=== PATIENT | male | born 1945 | race Caucasian/White ===

== ENCOUNTER 2020-05-03 09:27 | Emergency (ER) | payer MEDICARE, SELFPAY ==
--- NOTE | ~2020-05-03 | XR_ITS ---
EXAMINATION: XR ribs LT 2V w CXR 2V DATE: 05/03/2020 10:43 INDICATION: Left posterior rib pain. TECHNIQUE: Frontal and lateral views of the chest and 3 views of the left ribs were obtained. COMPARISON: None. FINDINGS: CHEST TWO VIEWS: A calcified right lung nodule and calcified right hilar and mediastinal lymph nodes are consistent with old granulomatous disease. No pleural effusion or pneumothorax. The heart size is normal. LEFT RIBS: There is no rib fracture. IMPRESSION: 1. No rib fracture. Reviewed, dictated and finalized at location B. RANS' COUNSELOR IMPRESSION: 1. No rib fracture.
--- NOTE | ~2020-05-03 | XR_ITS ---
EXAMINATION: XR shoulder LT min 2V DATE: 05/03/2020 10:43 INDICATION: Left shoulder pain. TECHNIQUE: 4 views of left shoulder were obtained. COMPARISON: None. FINDINGS: Bone alignment is normal. No fracture. There is mild osteoarthritis of glenohumeral joint a nd severe osteoarthritis of the acromioclavicular joint. IMPRESSION: 1. Polyarticular osteoarthritis. Reviewed, dictated and finalized at location B. IGN LANGUAGE TEACHER
--- NOTE | ~2020-05-03 | CT_ITS ---
EXAMINATION: CT brain wo con EXAM DATE: 05/03/2020 10:27 INDICATION: Head injury, dizziness. TECHNIQUE: Spiral CT of the head was performed without contrast. Axial, coronal and sagittal images were reviewed. The dose-length product (DLP) for this examination was 605.33 mGy-cm. The exposure w as tailored according to patient size, and iterative reconstruction (ASIR) was used as additional dos e reduction technique. There is no prior study for comparison. FINDINGS: There is no acute intraparenchymal hemorrhage. No evidence of intraparenchymal brain mass lesion. No evidence of acute infarction. Please note that initial head CT has limited sensitivity f or small or acute infarctions. Moderate-sized region of right temporal encephalomalacia, probably fr om prior infarction. There is mild periventricular and subcortical hypodensity, nonspecific but prob ably related to small vessel ischemic disease. There is mild prominence of the sulci and ventricles related to cerebral atrophy. There is intracranial carotid arteriosclerosis. There are no extra-a xial collections. There is no mass effect or midline shift. The orbits are unremarkable. Soft tiss ue is unremarkable. The visualized sinuses and mastoid air cells are well aerated. IMPRESSION: 1. 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 2. Chronic age related findings. Reviewed, dictated and finalized at location A. TABLE ENGINEER
--- NOTE | ~2020-05-03 | CT_ITS ---
EXAMINATION: CT UE LT wo con DATE: 05/03/2020 11:56 INDICATION: Left shoulder and upper arm pain post fall TECHNIQUE: High resolution computed tomography (CT) of the left upper limb from the shoulder through the distal humerus with portions of the posterolateral elbow excluded from the [id number]. was per formed without intravenous contrast. Additional sagittal and coronal reconstructions were performed. Automated exposure control and iterative reconstruction technique were employed. The dose-length prod uct was 803.59 mGy-cm. COMPARISON: Radiographs dated 05/03/2020 FINDINGS: Bone alignment is normal. No fracture. Mild left glenohumeral and severe acromioclavicular osteoarthr itis. No glenohumeral joint effusion or other abnormal fluid collections. No asymmetric muscular atro phy of the muscles of the left shoulder girdle including the rotator cuff or of the left upper arm. N o pathologically enlarged left axillary lymphadenopathy. Mild emphysema. IMPRESSION: 1. 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 No acute osseous abnormality. Reviewed, dictated and finalized at location A. ERS AND PRESSURE VESSELS INSPECTOR IMPRESSION: 1. Polyarticular osteoarthritis at the left shoulder, severe at the acromioclav icular joint. No acute osseous abnormality.
--- NOTE | ~2020-05-03 | XR_ITS ---
EXAMINATION: XR humerus LT DATE: 05/03/2020 10:43 INDICATION: Left shoulder pain. TECHNIQUE: 2 views of left humerus were obtained. COMPARISON: None. FINDINGS: Bone alignment is normal. No fracture. There is mild osteoarthritis of glenohumeral joint a nd severe osteoarthritis of the acromioclavicular joint. There are enthesophytes at the medial and la teral humeral epicondyles. There is a small fragment of heterotopic ossification near proximal radius . IMPRESSION: 1. Polyarticular osteoarthritis. Reviewed, dictated and finalized at location B. MANAGER
[2020-05-03 09:35] VITALS: BP 176/90; PULSE 68; RESP 14; TEMP 36.4; O2SAT 99
--- NOTE | 2020-05-03 09:48 | ECG_ITS ---
Measurements Intervals [place] Rate: 53 P: -22 TN: 208 QRS: 7 QRSD: 73 T: 27 QT: 391 QTc: 368 Interpretive Statements SINUS BRADYCARDIA ANTEROSEPTAL INFARCT, AGE INDETERMINATE BASELINE ARTIFACT- I, II, III, AVR, AVF ABNORMAL ECG Electronically Signed On 05-03-2020 10:11:20 WET INSPECTOR [employer] by Raad Turner D.O.
--- NOTE | 2020-05-03 09:51 | ED.UPPEXIN ---
HPI - Extremity Injury (Upper) General Chief Complaint: Extremity Injury, Upper Stated Complaint: left arm not working correctly x1 wk Time Seen by Provider: 05/03/20 09:30 Source: patient Mode of arrival: ambulatory Limitations: no limitations History of Present Illness HPI narrative: This is a 74-year-old male that presents the emergency department for left shoulder pain after an injury 1 week ago. Reports he was raking leaves and hit his head on a wooden beam. Reports this caused him to fall backwards and landed on his left arm. He is not sure if he lost consciousness. He was not evaluated after this accident. Reports since he has had dizzy spells intermittently upon standing. Also reports left upper arm pain. Reports decreased range of motion in the shoulder due to pain. Denies fever, vision changes, vomiting, or numbness. Related Data Allergies Allergy/AdvReac Type Severity Reaction Status Date / Time No Known Drug Allergies Allergy Unknown Unverified 04/12/09 10:45 Review of Systems Review of Systems: Narrative: CONSTITUTIONAL: Denies fever EYES: Denies visual changes CARDIOVASCULAR: Denies chest pain RESPIRATORY: Denies dyspnea. GASTROINTESTINAL: Denies vomiting MUSCULOSKELETAL: Reports joint pain and myalgia. Denies back pain NEUROLOGIC: Reports weakness. Denies headache, numbness All systems reviewed & are unremarkable except as noted in HPI and below PMFSH Past Medical History Medical History (Updated 05/03/20 @ 13:11 by Nadia Monk PA-C) History of hyperlipidemia History of hypothyroidism Exam Narrative: Exam Narrative: GENERAL: Well-appearing, well-nourished, and in no acute distress. HEAD: Normocephalic, atraumatic. EYES: PERRLA and EOMI. ENT: Nares clear, no rhinorrhea or epistaxis. Mucous membranes moist. Oropharynx without tonsillar hypertrophy exudate or other lesions. Bilateral TMs pearly celsete non-bulging NECK: Supple. No adenopathy or masses. No midline cervical spine tenderness CHEST: Clear to auscultation. No respiratory distress. No wheezes rales or rhonchi HEART: Regular rate and rhythm. No murmur heard. Normal peripheral pulses. BACK: No midline thoracic or lumbar spine tenderness EXTREMITIES: Normal range of motion, except decreased active range of motion in the left shoulder due to pain. No edema or obvious deformity. Strength equal in bilateral upper and lower extremities (5/5) SKIN: Warm, dry, no rash. NEURO: No focal deficits. Alert and oriented x3. Cranial nerves II through XII grossly intact PSYCH: Normal mood and affect Course Vital Signs Vital signs: Vital Signs Temperature 97.6 F 05/03/20 09:35 Pulse Rate 68 05/03/20 09:35 Respiratory Rate 14 05/03/20 09:35 Blood Pressure 176/90 H 05/03/20 09:35 Pulse Oximetry 99 05/03/20 09:35 Temperature 97.6 F 05/03/20 09:35 Pulse Rate 63 05/03/20 10:50 Respiratory Rate 14 05/03/20 09:35 Blood Pressure 141/107 H 05/03/20 10:50 Pulse Oximetry 99 05/03/20 09:35 MDM - Extremity Injury (Upper) MDM Narrative Medical decision making narrative: Patient presents to the emergency department for left shoulder pain after an injury a week ago. Reported a head injury at that time as well. He was not evaluated after this until today. Patient's vitals are stable. He is not orthostatic. CBC and metabolic panel without concerning findings. EKG shows nonspecific ST changes. Patient denies any current chest pain. Left rib/chest x-ray is without acute findings. CT scan of the brain is without acute findings. Left upper extremity CT is without acute osseous abnormalities. Patient will be placed in a sling and is to follow-up with orthopedics. He is stable and felt appropriate for further outpatient valuation. He was given warnings to return to the ER Lab Data Attestation: I reviewed the patient's lab results. Result diagrams: 05/03/20 09:56 05/03/20 09:56 Labs: Lab Results
[2020-05-03 10:09] LABS: Basophils Absolute Auto 0.1 K/mm3 (0.0-0.1); Basophils Percent Auto 0.9 % (0.2-1.2); Eosinophils Absolute Auto 0.2 K/mm3 (0-0.3); Eosinophils Percent Auto 2.8 % (0-4.4); Hematocrit 45.7 % (42.0-52.0); Hemoglobin 15.8 g/dL (14.0-18.0); Immature Granulocyte Absolute 0.02 K/mm3 (0.00-0.031); Immature Granulocyte Percent A 0.3 % (0-0.5); Lymphocytes Absolute Auto 2.24 K/mm3 (0.9-3.2); Lymphocytes Percent Auto 39.2 % (18.3-44.2); Mean Corpuscular HGB Conc 34.6 g/dl (32-36); Mean Corpuscular Hemoglobin 31.9 pg (26-34); Mean Corpuscular Volume 92.3 fl (80-100); Mean Platelet Volume 9.6 fl (7.4-10.4); Monocytes Absolute Auto 0.5 K/mm3 (0.1-0.6); Monocytes Percent Auto 8.4 % (2.6-8.5); Neutrophils Absolute Auto 2.8 K/mm3 (1.3-6.7); Neutrophils Percent Auto 48.4 % (45.5-73.1); Platelet Count Result 208 k/mm3 (150-375); Red Blood Count 4.95 M/mm3 (4.6-6.20); Red Cell Distribution Width 13.1 % (11.5-14.5); White Blood Count 5.7 K/mm3 (4.5-10.0)
[2020-05-03 10:22] LABS: Anion Gap 7 mmol/L (8-16); Blood Urea Nitrogen 10 mg/dL (9-20); Calcium 9.2 mg/dL (8.4-10.2); Carbon Dioxide 27 mmol/L (22-30); Chloride 105 mmol/L (98-107); Estimated CRCL calculation 64 ml/min; Estimated Glomerular Filt Rate > 60; Glucose 103 mg/dL (75-110); Potassium 3.9 mmol/L (3.4-5.0); Sodium 139 mmol/L (137-145)
[2020-05-03 10:47] VITALS: BP 153/69; PULSE 56
[2020-05-03 10:48] VITALS: BP 136/83
[2020-05-03 10:50] VITALS: BP 141/107; PULSE 63
--- NOTE | 2020-05-03 11:15 | PC.NURSE ---
received report from Armin JORDAN. patient here with left arm and left shoulder pain. see notes. no change in condition. waiting for all xrays to be resulted.
--- NOTE | 2020-05-03 13:11 | PC.NURSE ---
completing discharge paperwork now.
== END 2020-05-03 12:55 | disposition home or self-care (01) ==
PROVIDERS: Physician Assistant; Emergency Provider Emergency Medicine; PCP Family Medicine Adolescent Medicine
DX: S09.90XA Unspecified injury of head, initial encounter (principal); M25.512 Pain in left shoulder; M19.90 Unspecified osteoarthritis, unspecified site; E78.5 Hyperlipidemia, unspecified; E03.9 Hypothyroidism, unspecified; W01.0XXA Fall on same level from slipping, tripping and stumbling without subsequent striking against object, initial encounter
CPT/HCPCS: 36415; 70450; 71046; 71100; 73030; 73060; 73200; 80048; 85025; 93005; 99284; A4565

== ENCOUNTER 2024-08-24 15:56 | Emergency (ER) | payer MEDICARE, SELFPAY ==
[2024-08-24 16:01] VITALS: BP 159/87; PULSE 70; RESP 18; TEMP 36.1; O2SAT 100
--- NOTE | 2024-08-24 17:59 | PC.NURSE ---
Pt called to be seen by ARCH CUSHION PRESS OPERATOR and had no answer
== END 2024-08-24 18:25 | disposition left against medical advice (07) ==
LOC: ANHED 18:02
PROVIDERS: PCP Family Medicine Adolescent Medicine
DX: S89.92XA Unspecified injury of left lower leg, initial encounter (principal); W18.39XA Other fall on same level, initial encounter
CPT/HCPCS: 99199

== ENCOUNTER → 2024-09-21 16:22 | Outpatient (CLI) | payer MEDICARE, SELFPAY ==
--- NOTE | ~2024-09-21 | XR_ITS ---
XR knee LT min 4V 09/21/2024 16:26 Indication: Left knee pain Procedure: 4 views left knee Comparison: No prior studies for comparison. Findings: No fracture, subluxation or dislocation. No significant joint effusion. No foreign bodies. Impression: 1: No significant bone or joint abnormality. Reviewed, dictated and finalized at location A. Impression: 1: No significant bone or joint abnormality.
--- OUTSIDE RECORDS SUMMARY | 2024-09-21 17:23 | XMS_ITS | Continuity of Care Document ---
Author Organization [facility] Address [address] [place] [address] [place] [address] Phone Care Team Providers Care Image Archivist Name Role Phone [facility] [employer] Unavailable Unavail able Mala Kumari Unavailable Unavailable Procedures Procedure Date TF Plastic Sphcyl [place] To +/-4d .12-2d Anti-reflective Coating Tax - Medical Advance Directives Directive Yes / No Effective Date File Name No Information Encounters Encounter Description Practice Location Reason(s) For Visit Diagnoses Date Provider Providers Copied on Encounter [facility], [address], [place], [place], [id number], [place] tel:[phone] [facility] No Information [address] [employer] [address] [facility], [place] [address], [place], [place], [id number] , [place]. tel:[phone] Consulting Provider: Mala Kumari, [address] [place] [address], [address]. tel:[phone] Family History Family Member Type Diagnosis Age At Onset No Information Payers Payer name Insurance type Covered democrat ID Authoriza tion(s) No Information Social History Type Description Quantity Date Captured Comments Sex Male Smoking Status No Information Chief Complaint And Reason For Visit No Information Reason For Referral Reason For Referral No Information History Of Present Illness Encounter Date Complaint History Of Prese nt Illness No Information Functional Status Date Functional Assessmen t No Information Instructions Date Instruction Additional Infor mation No Information Assessments Type Assessment Date No Information Patient Care Teams Name Effective Dates (start - stop) Status Members No Information
--- OUTSIDE RECORDS SUMMARY | 2024-09-21 17:24 | XMS_ITS | Continuity of Care Document ---
Author Organization Located within [facility] Address [address] [place] [address] [place] [address] Phone Care Team Providers Care Schedule Clerk Name Role Phone [facility] Unavailable Unavail able Mala Kumari Unavailable Unavailable Procedures Procedure Date TF Plastic Sphcyl [place] To +/-4d .12-2d Anti-reflective Coating Tax - Medical Advance Directives Directive Yes / No Effective Date File Name No Information Encounters Encounter Description Practice Location Reason(s) For Visit Diagnoses Date Provider Providers Copied on Encounter [facility], [address], [place], [place], [id number], [place] tel:[phone] [facility] No Information [address] [facility] [employer] [address] [facility], [place] [address], [place], [place], [id number] , [place]. tel:[phone] Consulting Provider: Mala Kumari, [address] [place] [address], [address]. tel:[phone] Family History Family Member Type Diagnosis Age [...]
--- OUTSIDE RECORDS SUMMARY | 2024-09-21 17:31 | XMS_ITS | Continuity of Care Document ---
Author Organization [facility] Address [address] [place] [address] [place] [address] Phone Care Team Providers Care Binder Operator Name Role Phone [facility] Unavailable Unavail able Mala Kumari Unavailable Unavailable Procedures Procedure Date TF Plastic Sphcyl [place] To +/-4d .12-2d Anti-reflective Coating Tax - Medical Advance Directives Directive Yes / No Effective Date File Name No Information Encounters Encounter Description Practice Location Reason(s) For Visit Diagnoses Date Provider Providers Copied on Encounter [facility], [address], [place], [place], [id number], [place] tel:[phone] [facility] No Information [address] [facility] [employer] [address] [facility], [place] [address], [place], [place], [id number] , [place]. tel:[phone] Consulting Provider: Mala Kumari, [address] [place] [address], [address]. tel:[phone] Family History Family Member Type Diagnosis Age At Onset No Information Payers Payer name Insurance type Covered republican ID Authoriza tion(s) No Information Social History [...]
== END ==
LOC: EXPTROY 16:22 → EXPTRAD 16:23
PROVIDERS: PCP Family Medicine; Visit Provider Nurse Practitioner Family
DX: M25.562 Pain in left knee (principal)
CPT/HCPCS: 73564

== ENCOUNTER 2025-02-10 13:40 | Outpatient (CLI) | payer MEDICARE, SELFPAY ==
--- NOTE | 2025-02-10 14:00 | ECHO_ITS ---
Patient Info Name: José Miguel Montero Age: 79 years : 1945 Gender: Male Ht: 70 in Wt: 180 lbs BSA: 2.02 m2 HR: 64 bpm BP: 130 / 71 mmHg Technical Quality: Good Exam Date: 02/10/2025 2:07 PM Patient Status: O Admit Date: 02/10/2025 Exam Type: CA echo doppler color flow Complete two-dimensional, color flow and Doppler transthoracic echocardiogram is performed. Gis Software Engineer: Susan Bhatti Attending Provider: Steve Nogueira Summary 1. Complete two-dimensional, color flow and Doppler transthoracic echocardiogram is performed. 2. Left ventricular chamber dimension is normal. 3. Left ventricular systolic function is normal, estimated at 60-65. 4. There is mild concentric increased left ventricular wall thickness. 5. The left ventricular diastolic function is grade I diastolic dysfunction. 6. E/e' 8 is minimally elevated. 7. Left atrial chamber dimension is mildly enlarged. 8. There is severe aortic valve sclerosis. 9. There is moderate to severe aortic valve stenosis with a peak velocity of 321 cm/s, mean gradient of 26 mmHg, and aortic valve area of 1.0 cm2. 10. The mitral valve has a mildly calcified annulus. 11. There is trace mitral valve regurgitation. 12. There is trace tricuspid valve regurgitation. 13. There is trace pulmonic regurgitation. Left Ventricle E/e' 8 is minimally elevated. Left ventricular chamber dimension is normal. Left ventricular systolic function is normal, estimated at 60-65. There is mild concentric increased left ventricular wall thickness. The left ventricular diastolic function is grade I diastolic dysfunction. Right Ventricle Right ventricular chamber dimension is normal. Right ventricular systolic function is normal and with normal TAPSE 1.9 cm. Left Atria Left atrial chamber dimension is mildly enlarged. Right Atria Right atrial chamber dimension is normal. Aortic Valve The aortic valve is trileaflet. There is severe aortic valve sclerosis. There is moderate to severe aortic valve stenosis with a peak velocity of 321 cm/s, mean gradient of 26 mmHg, and aortic valve area of 1.0 cm2. There is no aortic valve regurgitation. Pulmonic Valve There is trace pulmonic regurgitation. Mitral Valve The mitral valve has a mildly calcified annulus. There is no mitral valve stenosis. There is trace mitral valve regurgitation. Tricuspid Valve There is trace tricuspid valve regurgitation. RVSP is not measured due to an inadequate TR jet. Pericardium/Pleural There is no pericardial effusion. Inferior Vena Cava Normal inferior vena cava with >50% collapse upon inspiration consistent with normal right atrial pressure, 5 mmHg. Aorta The aortic root size at the sinus of Valsalva is normal. Left Ventricular Outflow Tract Name Value Normal LVOT 2D LVOT Diameter 2.0 cm LVOT Doppler LVOT Peak Velocity 108 cm/s LVOT Peak Gradient 5 mmHg LVOT Mean Gradient 3 mmHg LVOT VTI 28 cm LVOT VTI/AV VTI Ratio 0.3 LVOT Stroke Volume 86 ml LVOT CO 5.4 l/min LVOT CI 2.7 l/min/m2 Pulmonic Valve Name Value Normal RVOT Doppler RVOT Peak Velocity 44 cm/s RVOT Peak Gradient 1 mmHg PV Doppler PV Peak Velocity 96 cm/s PV Peak Gradient 4 mmHg Mitral Valve Name Value Normal MV Diastolic Function MV E Peak Velocity 81 cm/s MV A Peak Velocity 113 cm/s MV E/A 0.7 MV Decel Time (PW) 216 ms MV Annular TDI MV E/e' (Septal) 10.2 MV E/e' (Lateral) 7.1 MV E/e' (Average) 8.7 Tricuspid Valve Name Value Normal Estimated PAP/RSVP RA Pressure 5 mmHg <=5 Aortic Valve Name Value Normal AV Doppler AV Peak Velocity 321 cm/s AV Peak Gradient 41 mmHg AV Mean Gradient 26 mmHg AV VTI 88 cm AV Area (Cont Eq VTI) 1.0 cm2 >=3.0 AV Area (Cont Eq Matteo) 1.0 cm2 AV DI (Matteo) 0.34 AV Regurgitation 2D LVOT Area 3.1 cm2 Ventricles Name Value Normal LV Dimensions 2D/MM IVS Diastolic Thickness (2D) 0.9 cm 0.6-1.0 LVID Diastole (2D) 5.0 cm 4.2-5.8 LVIW Diastolic Thickness (2D) 1.1 cm 0.6-1.0 LVID Systole (2D) 3.4 cm 2.5-4.0 LVOT Diameter 2.0 cm LV Mass (2D Cubed) 188.28 g 88.00-224.00 LV Mass Index (2D Cubed) 93 g/m2 49-115 Relative Wall Thickness (2D) 0.45 <=0.42 LV Fractional Shortening/Ejection Fraction 2D/MM LV Fractional Shortening (2D) 32 % 25-43 LV EF (2D Teichholz) 60 % LV Diastolic Volume (4C MOD) 128 ml LV EF (4C MOD) 58 % LV Diastolic Volume (2C MOD) 119 ml LV EF (2C MOD) 75 % LV Diastolic Volume (BP MOD) 129 ml 62-150 LV Diastolic Volume Index (BP MOD) 64 ml/m2 34-74 LV Systolic Volume (BP MOD) 48 ml 21-61 LV Systolic Volume Index (BP MOD) 24 ml/m2 11-31 LV EF (BP MOD) 63 % 52-72 LV Diastolic Length (4C) 9.5 cm LV Systolic Length (4C) 8.2 cm LV Stroke Volume (4C MOD) 74 ml Atria Name Value Normal LA Dimensions LA Volume (4C A-L) 62 ml LA Volume (BP A-L) 56 ml RA Dimensions RA Systolic Major Dora Length (4C) 5.6 cm 2.1-2.7 RA Area (4C) 19.7 cm2 <=18.0 Report Signatures
== END 2025-02-10 13:41 | disposition home or self-care (01) ==
PROVIDERS: PCP Family Medicine; Visit Provider Family Medicine
DX: R01.1 Cardiac murmur, unspecified (principal); I51.89 Other ill-defined heart diseases; I35.8 Other nonrheumatic aortic valve disorders; I34.81 Nonrheumatic mitral (valve) annulus calcification
CPT/HCPCS: 93306